=== PATIENT | male | born 1950 | race Caucasian/White ===

== ENCOUNTER 2021-03-13 05:04 | Observation (INO) ==
--- NOTE | 2021-02-28 10:15 | PAT Medication Instructions ---
Medication Instructions Date of Service February 28, 2021 Home Medications acetaminophen [Tylenol Extra Strength] 1,000 mg PO Q6H PRN cholecalciferol (vitamin D3) [Vitamin D3] 250 mcg PO QAM famotidine [Pepcid] 20 mg PO DAILY PRN meloxicam 15 mg PO QAM tramadol 50 mg PO BID PRN ASK your surgeon for instructions meloxicam 15 mg PO QAM DO NOT take the morning of surgery cholecalciferol (vitamin D3) [Vitamin D3] 250 mcg PO QAM Take morning of surgery With a small sip of water, OTHERWISE NOTHING TO EAT OR DRINK AFTER MIDNIGHT: acetaminophen [Tylenol Extra Strength] 1,000 mg PO Q6H PRN (if needed, may be taken up to four hours before surgery) famotidine [Pepcid] 20 mg PO DAILY PRN (if needed) tramadol 50 mg PO BID PRN (if needed, may be taken up to four hours before surgery) Other Notes If you have any questions please call us at [phone] or [phone] or [phone] or [phone]
--- NOTE | 2021-03-02 14:18 | Anesthesiology Consultation ---
Date of Service March 02, 2021 Assessment & Plan (1) Encounter for pre-operative examination: COVID Status: As of 03/02 assessment, patient denies travel to endemic area, known exposure/sick contacts, or symptoms of COVID19. He admitted to PAT RN he does not often wear a mask or wash his hands. Patient advised to adhere to social distancing guidelines, wear a mask in public and avoid large crowds or unnecessary travel in the 2 weeks leading up to surgery. Preoperative COVID19 te sting to be completed prior to surgery per surgeon's arrangements (patient reports being done in [place] at his PCP clearance appt on 03/08. Patient encouraged to be extra cautious/conscientious with COVID precautions between COVID testing and surgery. Patient is NOT vaccinated. Pt had covid in January. Tested + at an urgent care in [facility]. Patient will attempt to obtain records. Made aware that there is a chance he may test positive on his pre-op test, and we need proof of his previous + test in order to proceed. Chart Review Chart Review: Acceptable Risk for Surgery and Patient seen in Pre Admission Testing Teaching & Discussion Instructed NPO after midnight before surgery, except medications with 15 cc of water. Medication instructions provided according to the PAT guidelines. History Surgery Operation Date: 03/13/21 09:15 Proposed Procedures p Right Total Hip Arthroplasty Anterior - Bari Gatica DO Height/Weight Height: 5 ft 6 in Weight: 96.8 kg Allergies Allergy/AdvReac Type Severity Reaction Status Date / Time No Known Allergies Allergy Verified 02/23/21 11:48 Medications Home Medications Medication Instructions Recorded Confirmed Last Taken acetaminophen [Tylenol Extra 1,000 mg PO Q6H PRN 02/23/21 02/23/21 Unknown Strength] cholecalciferol (vitamin D3) 250 mcg PO QAM 02/23/21 02/23/21 Unknown [Vitamin D3] famotidine [Pepcid] 20 mg PO DAILY PRN 02/23/21 02/23/21 Unknown meloxicam 15 mg PO QAM 02/23/21 02/23/21 Unknown tramadol 50 mg PO BID PRN 02/23/21 02/23/21 Unknown Past Medical History Medical History (Updated 03/02/21 @ 14:23 by Agustin Miller) Arthritis Cancer 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 Sleep apnea DOES NOT USE DEVICE Exercise / Class Metabolic Activity II 4-5 Yardwork/Stairs/Walk up hill Past Family History Family History Father Family history of diabetes mellitus Past Surgical History Surgical History (Updated 03/02/21 @ 14:14 by Agustin Miller) History of appendectomy History of back surgery X 2-LOWER BACK. Hardware present. Nausea and vomiting after administration of anesthetic agent Past Anesthesia History No Hx of Anesthesia Complications (other than PONV) and No Family Hx of Anesthesia Complications History of PONV No Hx of Motion Sickness (except on the ocean) and History of PONV Social History Smoking Status: Never smoker Do You Dip or Chew Tobacco: No Hx Alcohol Use: No Hx Substance Use: No Review of Systems Pt denies any recent chest pain, shortness of breath, palpitations, fever, URI, or uncontrolled acid reflux. +mild residual cough, dry, ever since covid infection in January, also sinus drainage Physical Exam Vital Signs BP: 134/90 P: 71bpm SPO2: 97% RA T: 98.0 F R: 16 ENMT Mouth: + macroglossia; no dental restorations, no chipped teeth and no loose teeth Thyromental Distance: > or= 3.5 Finger Breadths Mallampati Class: II Neck neck extension not limited Respiratory normal respiratory effort, lungs clear to auscultation + prolonged expiratory phase Auscultation: + bronchovesicular breath sounds Cardiovascular RRR, no murmur, no edema Lab Results Anesthesia Preop Results Results Anesthesia Widget: WBC 5.88 K/uL (4.8-10.8) 03/02/21 Hgb 14.1 g/dL (14.0-18.0) 03/02/21 Hct 41.6 % (42-52) L 03/02/21 Plt 223 K/uL (130-400) 03/02/21 Na 138 mmol/L (136-145) 03/02/21 K 4.8 mmol/L (3.5-5.1) 03/02/21 Cl 108 mmol/L (98-107) H 03/02/21 CO2 26 mmol/L (21-32) 03/02/21 BUN 20 mg/dl (7-18) H 03/02/21 Creat 0.85 mg/dl (0.6-1.4) 03/02/21 Glucose Level 93 mg/dl (70-99) 03/02/21 PT 10.7 Seconds (9.0-12.0) 03/02/21 PTT 28.5 Seconds (21.0-31.0) 03/02/21 INR 1.1 (0.9-1.1) 03/02/21 HA1c 5.9 % (4.5-5.6) H 03/02/21 Urine Color Dark Yellow 03/02/21 Urine Appearance Clear (Clear) 03/02/21 Urine pH 5.5 (4.5-7.5) 03/02/21 Urine Specific [place] 1.027 (1.000-1.030) 03/02/21 Urine Protein Negative (Negative) 03/02/21 Urine Glucose (UA) Negative (Negative) 03/02/21 Urine Ketones Trace (Negative) H 03/02/21 Urine Blood Negative (Negative) 03/02/21 Urine Nitrite Negative (Negative) 03/02/21 Urine Bilirubin Negative (Negative) 03/02/21 Urine Urobilinogen Negative (Negative) 03/02/21 Urine Leukocyte Esterase Negative (Negative) 03/02/21 Blood Type O Positive 03/02/21 Antibody Screen NEGATIVE 03/02/21
--- NOTE | 2021-03-12 08:05 | History & Physical Report ---
Date of Service March 13, 2021 Assessment & Plan (1) Degenerative joint disease of right hip: I have indicated the patient for right anterior total hip replacement. The risks, benefits and complications of surgery were explained to the patient which include but not limited to infection, acute blood loss, DVT/PE, injury to nerves, vessels, bone, soft tissue, arthrofibrosis, chronic pain, failure of the prosthesis, hip dislocation, leg length discrepancy, need for additional surgery, cardiac and pulmonary events and . The patient wished to proceed with surgery and informed consent was obtained at this time. We will plan for 81mg ASA BID post-operatively for DVT prophylaxis. Upon discharge the patient will be discharged home with home health services. Appropriate clearances by PCP were obtained. History of Present Illness Chief Complaint: Right hip pain/DJD Primary Care Provider: Baldo Hook The patient is a 70 year old male who presents with complaints of severe right hip pain and DJD. The patient has failed outpatient conservative treatments to this point which included NSAIDs, IA corticosteroid injection, home exercise/walking program. The patient's pain and limited function have progressed to the point where they severely hinder their activities of daily living and they no longer tolerate exercise programs. They are requesting to proceed with total hip replacement surgery. 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 Sleep apnea DOES NOT USE DEVICE Surgical History History of appendectomy History of back surgery X 2-LOWER BACK. Hardware present. 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 Constitutional: WD/WN, vitals as above Eyes: PERRL, conjunctivae normal, anicteric sclerae ENMT: external ear and nose normal, oropharynx normal Neck: trachea midline, no thyromegaly Respiratory: normal respiratory effort, lungs clear to auscultation Cardiovascular: RRR, no murmur, no edema Gastrointestinal (Abdomen): normal bowel sounds, soft, nontender, no hepatosplenomegaly Musculoskeletal: no cyanosis or clubbing, extremities motor strength 5/5 Skin: no rashes, warm and dry Neurologic: patellar DTR's 2+ bilat, sensation intact Psychiatric: A+Ox3, euthymic affect Lymphatic: no cervical or axillary lymphadenopathy Results & Data Results & Data ([facility]) Diagnostic Findings Multiple views of the hip demonstrates severe DJD with complete loss of the joint space. +osteophytes, +sclerosis, +subchondral cysts.
[2021-03-13] MEDS ORDERED: FAMOTIDINE 20 MG TAB PO SCH (06:00)
[2021-03-13] MEDS ORDERED: TRANEXAMIC ACID 1,000 MG **IV Pre-op IV SCH (06:00)
[2021-03-13] MEDS ORDERED: LR 500ML BOLUS, THEN 15ML/HR IV SCH (06:00)
[2021-03-13] MEDS ORDERED: ACETAMINOPHEN 500 MG TAB PO SCH (06:00)
[2021-03-13] MEDS ORDERED: METOCLOPRAMIDE HCL 10 MG TABLET PO SCH (06:00)
[2021-03-13] MEDS ORDERED: dexAMETHasone 4 MG TAB PO SCH (06:00)
[2021-03-13] MEDS ORDERED: ceFAZolin 2000MG 2,000 MG/15 ML SYR IV SCH (06:00)
[2021-03-13] MEDS ORDERED: TRANEXAMIC ACID 1,000 MG **IV Intra-op IV SCH (06:00)
[2021-03-13] MEDS ORDERED: BUPIVACAINE 0.5 % 5 MG/1 ML PF 10ML VIAL ONE (06:27)
--- NOTE | 2021-03-13 06:49 | History & Physical Bridge Note ---
Date of Service March 13, 2021 History & Physical Bridge Note I have examined the patient, reviewed the History & Physical and in the interval since the performance of the History & Physical I have noted the following changes of clinical significance: no changes noted
[2021-03-13] MEDS ORDERED: ORTHO JOINT ANESTHETIC ONE (06:55)
[2021-03-13] MEDS ORDERED: MIDAZOLAM HCL 1 MG/ML 2ML VIAL ONE (06:58)
[2021-03-13] MEDS ORDERED: fentaNYL citrate 100 MCG/2 ML VIAL ONE (06:58)
[2021-03-13] MEDS ORDERED: ATROPINE SULFATE 0.1 MG/ML 10ML SYR IV PRN (07:28)
[2021-03-13] MEDS ORDERED: PROMETHAZINE HCL 12.5 MG in SODIUM CHLORIDE 0.9% 50 ML IV PRN (07:28)
[2021-03-13] MEDS ORDERED: fentaNYL citrate 100 MCG/2 ML VIAL IV PRN (07:28)
[2021-03-13] MEDS ORDERED: ONDANSETRON INJ 2 MG/ML 2 ML VIAL IV PRN ×2 (07:28→10:48)
[2021-03-13] MEDS ORDERED: HYDROmorphone INJ 1 MG/ML SYRINGE IV PRN (07:28)
[2021-03-13] MEDS ORDERED: FLUMAZENIL 0.1 MG/1 ML 10 ML VIAL IV PRN (07:28)
[2021-03-13] MEDS ORDERED: ePHEDrine sulfate 50 MG/ML AMP IV PRN (07:28)
[2021-03-13] MEDS ORDERED: NALOXONE HCL 0.4 MG/1 ML VIAL/CARP IV PRN ×2 (07:28→10:48)
[2021-03-13] MEDS ORDERED: LIDOCAINE 2% 2 ML VIAL/AMP(20MG/ML) INFIL ONE (07:53)
[2021-03-13] MEDS ORDERED: PROPOFOL IV EMULSION 10 MG/ML 20 ML VIAL IV ONE (07:53)
[2021-03-13] MEDS ORDERED: ONDANSETRON INJ 2 MG/ML 2 ML VIAL ONE (07:53)
[2021-03-13] MEDS ORDERED: ROPIVACAINE 0.5% HCL/PF 150 MG, BUPIVACAINE 0.75% MPF 20 ML, EPINEPHrine 30MG/30ML (OR ... INSTIL SCH (08:00)
--- NOTE | 2021-03-13 08:56 | Post Operative Brief Note ---
Immediate Post Op Note v1 Date of Surgery March 13, 2021 Pre & Post Diagnosis Operation Date: 03/13/21 07:15 Pre-Op Diagnosis: Unilateral Primary Osteoarthritis Hip Right Post-Op Diagnosis: Unilateral Primary Osteoarthritis Hip Right I identified the patient and participated in the time-out.: Yes Procedure Operation Date: 03/13/21 07:15 Actual Procedures p Right Anterior Total Hip Arthroplasty(Right) - Bari Gatica DO Surgeon Bari Gatica DO Triage Nurse Dru Pemberton Estimated Blood Loss 185 Findings Consistent with Post-Op Diagnosis Fluids See anesthesia report Specimens Femoral head Anesthesia Type Spinal MAC Complications none Disposition Disposition: Recovery Room Overlapping Procedure I was present for: the critical portions of procedure. I was immediately available: during the entire case. Back up surgeon: was not required during procedure.
--- NOTE | 2021-03-13 08:59 | Operative Report ---
Post Operative Report Pre & Post Diagnosis Operation Date: 03/13/21 07:15 Pre-Op Diagnosis: Unilateral Primary Osteoarthritis Hip Right Post-Op Diagnosis: Unilateral Primary Osteoarthritis Hip Right I identified the patient and participated in the time-out.: Yes Procedure Operation Date: 03/13/21 07:15 Actual Procedures p Right Anterior Total Hip Arthroplasty(Right) - Bari Gatica DO Surgeon Bari Gatica DO Fermentation Manager Dru Pemberton Estimated Blood Loss 185 Findings Consistent with Post-Op Diagnosis Fluids See anesthesia report Specimens Femoral head Anesthesia Type Spinal MAC Complications none Disposition Disposition: Recovery Room Indications The patient is a 70-year-old male who presents with severe progressive right hip DJD who has failed outpatient conservative treatments. I indicated the patient for a total hip replacement and the risks and benefits were explained in detail which included but not limited to infection, bleeding, blood clot, damage to s urrounding bone, nerves, vessels, soft tissue, hip dislocation, failure of the prosthesis, leg length discrepancy, need for additional surgery and . The patient agreed to proceed with replacement of the hip and informed consent was obtained. Appropriate clearances were obtained. Description of Procedure COMPONENTS USED: Lucero & NephUIBLUEPRINTology hip system: Acetabulum size 52, femur size 8 standard offset, femoral head 36-3, liner 52x30, acetabular screw 25 mm times. DESCRIPTION OF PROCEDURE: Following satisfactory spinal anesthesia, the patient was placed supine on the OR table. The left leg was placed in the well leg guthrie and the right leg in the traction device. The right leg was prepared with ChloraPrep and draped sterilely. A surgical timeout was performed, patient identified and site [place] verified. Appropriate antibiotics were given. A standard anterior approach in the interval between the sartorius and tensor muscles was performed. Dissection was carried down through subcutaneous tissues. Electrocautery was utilized for hemostasis. Circumflex femoral vessels were identified, tied and ligated. The anterior capsular fat pad was removed and the capsulotomy was performed revealing the arthritic femoral neck and head. A femoral neck cut was made with reciprocating saw and the bone fragments removed. The acetabular self-retraining retractor was placed. Acetabular reaming was completed under fluoroscopic guidance, a 52 shell was impacted into an anatomic position and secured with a acetabular screw. Local anesthetic was placed and following irrigation, the polyethylene liner was placed. The femur was placed into position of external rotation, extension and adduction. Femoral canal was prepared up to the size 8 standard offset. Trial reduction with a 36-3 neck length head showed good soft tissue tension, leg lengths restored, and good fit and fill of the proximal canal using fluoroscopic landmarks. The hip was dislocated. The trial component was removed. The final implant was placed. The hip was irrigated with sterile saline solution and reduced. A Betadine soak was performed. After 3 minutes, the hip was once more irrigated with copious sterile saline solution with bacitracin. Rosalind-incisional soft tissue was injected utilizing [place] Orthomix which includes a combination of Ropivicaine 0.5% 150mg, Bupivicaine 0.5%/Epinephrine 1:200,000 30ml, Toradol 30mg, Dexamethasone 4mg, Ketamine 10mg, Clonidine 100mcg and NSS 30ml solution. The capsule was then closed with 1-0 Vicryl interrupted figure of eight sutures. The fascia was closed with a running suture of #1 Vicryl, the subcutaneous tissues with 2-0 Vicryl and the skin was closed with criss. A sterile dry dressing was applied which included elsa incisional VAC. The patient tolerated the procedure well and was transported to PACU in stable condition. Due to the complex nature of the procedure, the entire surgery was performed with the operational assistance of Dru Pemberton PA-C. The health center assistant, under direct supervision, was involved in the actual performance of all aspects of the surgical procedure including patient positioning, hemostasis, tissue retraction, instrument management and wound closure. I attest to the content of the Intraoperative Record and any orders documented therein. Any exceptions are noted below.
--- NOTE | 2021-03-13 09:30 | Orthopedic Progress Note ---
Date of Service March 13, 2021 Assessment & Plan (1) Degenerative joint disease of right hip: s/p right anterior total hip arthroplasty -Ancef x24 -DVT prophylaxis: SCDs, teds, 81 mg ASA twice daily -Weight-bear as tolerates right lower extremity -PT/OT -Postoperative x-ray demonstrates a well aligned well fixed prosthesis without fracture or dislocation. -A.m. labs -DC planning Subjective Post Operative Progress Note Patient seen in PACU, comfortable, denies complaints, pain well controlled, no acute issues. Review of Systems Review of Systems: All systems reviewed & are unremarkable except as noted in HPI & below Constitutional: as per Subjective / HPI Physical Exam Physical Exam: Right lower extremity physical exam limited secondary to spinal anesthesia, +2 dorsalis pedis pulse, compartment soft nontender, dressing clean dry and intact. Constitutional: WD/WN, vitals as above Results & Data ([place]) Vital Signs (Past 12 Hours) Vital Signs Temp Pulse Pulse Resp BP BP Pulse Ox 03/13/21 09:20 72 16 108/79 94 03/13/21 09:11 36.2 C L 77 15 128/75 95 03/13/21 05:50 37.1 C 100 H 18 137/99 96
--- NOTE | 2021-03-13 09:38 | Fluoroscopy Report ---
FL hip RT 1V CLINICAL HISTORY: RT TOTAL ANTERIOR HIP COMPARISON STUDY: None. FLUOROSCOPY TIME: 28 seconds. FINDINGS: 2 fluoroscopic spot images of the right hip demonstrate a right total hip arthroplasty. The hardware is intact. No fracture or dislocation. IMPRESSION: Fluoroscopy provided for right total hip arthroplasty. ACT 112: Negative or not required by law. Electronically signed by: Marcio Coley M.D. 03/13/2021 9:36 AM
--- NOTE | 2021-03-13 10:09 | XRay Report ---
AP PELVIS, CROSSTABLE LATERAL RIGHT HIP History: Right total hip arthroplasty. Degenerative arthritis. Postop. FINDINGS: The patient is status post a right total hip arthroplasty. The hardware is intact. No fract ure or dislocation. Skin criss are in place. IMPRESSION: Right total hip arthroplasty. No evidence for hardware complication ACT 112: Negative or not required by law. Electronically signed by: Marcio Coley M.D. 03/13/2021 10:07 AM
--- NOTE | 2021-03-13 10:29 | Anesthesiology Progress Note ---
Date of Service March 13, 2021 Anesthesia Post Procedure Vital Signs Vital Signs: Temp Pulse Pulse Resp BP BP Pulse Ox 03/13/21 10:20 66 17 114/76 94 03/13/21 10:10 36.4 C L 72 20 106/75 94 03/13/21 10:00 70 16 109/76 92 03/13/21 09:50 66 15 104/76 93 03/13/21 09:40 68 17 95/71 L 94 03/13/21 09:30 68 16 113/66 94 03/13/21 09:20 72 16 108/79 94 03/13/21 09:11 36.2 C L 77 15 128/75 95 03/13/21 05:50 37.1 C 100 H 18 137/99 96 Pain Intensity Right Hip: Pain Intensity: 2 Transfer of Care Handoff Completed per policy Notes Mental Status: alert / awake / arousable Patient Amnestic to Procedure: Yes Nausea / Vomiting: adequately controlled Pain: adequately controlled Airway Patency, RR, SpO2: stable & adequate BP & HR: stable & adequate Hydration State: stable & adequate Neuraxial Anesthesia: was administered and sensory block is resolving Anesthetic Complications: no major complications apparent
[2021-03-13] MEDS ORDERED: METOCLOPRAMIDE HCL INJ 5 MG/ML 2 ML VIAL IV PRN (10:48)
[2021-03-13] MEDS ORDERED: diphenhydrAMINE Capsule 25 MG CAP PO PRN (10:48)
[2021-03-13] MEDS ORDERED: FAMOTIDINE 20 MG TAB PO PRN (10:48)
[2021-03-13] MEDS ORDERED: bisacodyL 10 MG SUPP PR PRN (10:48)
[2021-03-13] MEDS ORDERED: MAGNESIUM HYDROXIDE SUSP 30 ML UDC PO PRN (10:48)
[2021-03-13] MEDS ORDERED: HYDROmorphone INJ 0.5 MG/0.5 ML SYR IV PRN (10:48)
[2021-03-13] MEDS: SODIUM CHLORIDE 0.9% 1000ML 1,000 ML IV SCH ×2 (11:04→21:18)
[2021-03-13] MEDS: DOCUSATE SODIUM 100 MG CAP PO SCH ×2 (13:01→21:04)
[2021-03-13] MEDS: KETOROLAC TROMETHAMINE 15 MG/ML VIAL IV SCH ×3 (13:01→23:06)
[2021-03-13] MEDS: ACETAMINOPHEN 500 MG TAB PO SCH ×2 (14:44→21:03)
[2021-03-13] MEDS: MULTIVITAMIN TAB PO SCH (14:44)
[2021-03-13] MEDS: ceFAZolin 2000MG 2,000 MG/15 ML SYR IV SCH ×2 (16:16→23:06)
[2021-03-13] MEDS ORDERED: SENNA 8.6 MG TAB PO SCH (21:00)
[2021-03-13] MEDS: oxyCODONE HCL IR 5 MG TAB (IMMEDIATE RELEASE) PO PRN (21:03)
[2021-03-14] MEDS: ACETAMINOPHEN 500 MG TAB PO SCH ×2 (06:00→13:43)
[2021-03-14] MEDS: KETOROLAC TROMETHAMINE 15 MG/ML VIAL IV SCH (06:01)
[2021-03-14 08:23] LABS: Basophils # (auto) 0.01 K/uL (0-0.2); Basophils % (auto) 0.1 %; Hematocrit (blood only) 37.8 % (42-52); Immature Granulocytes # (auto) 0.05 K/uL (0.00-0.02); Immature Granulocytes % (auto) 0.3 %; Lymphocytes # (auto) 1.72 K/uL (1.2-3.4); Lymphocytes % (auto) 11.3 %; Mean Corpuscular Hemoglobin 30.2 pg (25-34); Mean Corpuscular Hgb Conc 34.4 g/dL (32-36); Mean Corpuscular Volume 87.7 fL (80-100); Mean Platelet Volume 10.7 fL (7.4-10.4); Monocytes # (auto) 2.02 K/uL (0.11-0.59); Monocytes % (auto) 13.2 %; Neutrophils # (auto) 11.48 K/uL (1.4-6.5); Neutrophils % (auto) 75.1 %; Platelet Count 297 K/uL (130-400); RDW Coefficient of Variation 13.2 % (11.5-14.5); RDW Standard Deviation 43.1 fL (36.4-46.3); Red Blood Count 4.31 M/uL (4.7-6.1); White Blood Count 15.28 K/uL (4.8-10.8)
[2021-03-14] MEDS: DOCUSATE SODIUM 100 MG CAP PO SCH (08:30)
[2021-03-14] MEDS: MULTIVITAMIN TAB PO SCH (08:30)
[2021-03-14] MEDS: oxyCODONE HCL IR 5 MG TAB (IMMEDIATE RELEASE) PO PRN ×2 (08:33→13:44)
[2021-03-14 08:35] LABS: BUN Creatinine Ratio 22.5 (10-20); Calcium 9.4 mg/dl (8.5-10.1); Creatinine Clr Calc Pharmacy 76.9 ml/min; Est GFR (African American) 91.3 ml/min; Est GFR (Non-African American) 78.8 ml/min; Potassium 3.8 mmol/L (3.5-5.1)
[2021-03-14] MEDS ORDERED: ASPIRIN 81 MG ECTAB PO SCH (09:00)
--- NOTE | 2021-03-14 09:29 | Orthopedic Progress Note ---
Date of Service March 14, 2021 Assessment & Plan (1) Degenerative joint disease of right hip: s/p right anterior total hip arthroplasty POD#1 -Ancef x24 -DVT prophylaxis: SCDs, teds, 81 mg ASA twice daily -Weight-bear as tolerates right lower extremity -PT/OT -Postoperative x-ray demonstrates a well aligned well fixed prosthesis without fracture or dislocation. -A.m. labs - as above, hgb 13.0 -DC planning - home with Admission and Anticipated Discharge Date Admission Date: March 13, 2021 Subjective Post Operative Progress Note Patient seen sitting up in bed, comfortable, denies complaints, pain well controlled, no acute issues. Denies F/C/N/V/SOB/CP. Review of Systems Review of Systems: All systems reviewed & are unremarkable except as noted in HPI & below Constitutional: as per Subjective / HPI Physical Exam Physical Exam: RLE NVSI +EHL/FHL/TA/GS SILT grossly, +2 DP pulse, compartments soft NT, dressing cdi. Constitutional: WD/WN, vitals as above Results & Data ([facility]) Vital Signs (Past 12 Hours) Vital Signs Temp Pulse Pulse Resp BP Pulse Ox 03/14/21 06:59 36.5 C 84 18 136/87 95 03/14/21 03:19 36.7 C 71 16 146/83 H 94 03/13/21 22:56 36.7 C 73 16 120/76 94 Laboratory Results 03/14/21 03/14/21 Range/Units 07:34 07:34 WBC 15.28 H (4.8-10.8) K/uL RBC 4.31 L (4.7-6.1) M/uL Hgb 13.0 L (14.0-18.0) g/dL Hct 37.8 L (42-52) % MCV 87.7 (80-100) fL MCH 30.2 (25-34) pg MCHC 34.4 (32-36) g/dL RDW Std Deviation 43.1 (36.4-46.3) fL RDW Coeff of David 13.2 (11.5-14.5) % Plt Count 297 (130-400) K/uL MPV 10.7 H (7.4-10.4) fL Immature Gran % (Auto) 0.3 % Neut % (Auto) 75.1 % Lymph % (Auto) 11.3 % [place] % (Auto) 13.2 % Eos % (Auto) 0.0 % Baso % (Auto) 0.1 % Neut # (Auto) 11.48 H (1.4-6.5) K/uL Lymph # (Auto) 1.72 (1.2-3.4) K/uL [place] # (Auto) 2.02 H (0.11-0.59) K/uL Eos # (Auto) 0.00 (0-0.5) K/uL Baso # (Auto) 0.01 (0-0.2) K/uL Immature Gran # (Auto) 0.05 H (0.00-0.02) K/uL Sodium 137 (136-145) mmol/L Potassium 3.8 (3.5-5.1) mmol/L Chloride 104 (98-107) mmol/L Carbon Dioxide 23 (21-32) mmol/L Anion Gap 10.0 (3-11) BUN 22 H (7-18) mg/dl Creatinine 0.97 (0.6-1.4) mg/dl Est Cr Clr Drug Dosing 76.9 ml/min Est GFR ( Amer) 91.3 ml/min Est GFR (Non-Af Amer) 78.8 ml/min BUN/Creatinine Ratio 22.5 H (10-20) Glucose 108 H (70-99) mg/dl Calcium 9.4 (8.5-10.1) mg/dl
[2021-03-14] MEDS ORDERED: CeleBREX 200 MG CAP PO SCH (12:00)
--- NOTE | 2021-03-14 21:30 | Discharge Summary ---
Date of Service March 14, 2021 Admission HPI Per Admitting Provider The patient is a 70 year old male who presents with complaints of severe right hip pain and DJD. The patient has failed outpatient conservative treatments to this point which included NSAIDs, IA corticosteroid injection, home exercise/walking program. The patient's pain and limited function have progressed to the point where they severely hinder their activities of daily living and they no longer tolerate exercise programs. They are requesting to proceed with total hip replacement surgery. Principal Diagnosis Right anterior total hip replacement Discharge Exam RLE NVSI +EHL/FHL/TA/GS SILT grossly, +2 DP pulse, compartments soft NT, dressing cdi. Constitutional WD/WN, vitals as above Discharge Data Allergies Allergy/AdvReac Type Severity Reaction Status Date / Time No Known Allergies Allergy Verified 02/23/21 11:48 Procedures Performed Operation Date: 03/13/21 07:15 Actual Procedures p Right Anterior Total Hip Arthroplasty(Right) - Bari Gatica DO Ordered Studies 03/13/21 07:15 FL hip RT 1V Routine Hospital Course (1) Degenerative joint disease of right hip: The patient is a 70 -year-old male who presents with long standing history of severe right hip DJD and failed outpatient conservative treatments. The patient's symptoms have progressed to the point where it has been difficult to perform even normal activities of daily living. I indicated the patient for a right anterior total hip arthroplasty, the risks, benefits and complications of the procedure include but not limited to infection, bleeding, damage to bone, nerves, vessels, surrounding soft tissue, may develop blood clots, loss of function, leg length discrepancy, dislocation, failure of the components, loosening of the components, the need for additional surgery and . The patient wished to proceed with surgery at this time and informed consent was obtained. Hospital Course: On 03/13/21 the patient was taken to the operating room, adequate anesthesia administered and underwent a right anterior total hip arthroplasty. The patient tolerated the procedure well and was taken to the PACU in stable condition. Post-operatively the patient was started on a DVT ppx medication and given appropriate IV antibiotics. Consults were placed to physical therapy, occupational therapy and case management. On POD#1, the patient did well overnight and their pain was well controlled. Labs were drawn and the Hgb was 13.0. The patient progressed well with PT. Dressings were changed at this time and the incision was clean, dry and intact. The patients hospital stay was relatively uneventful and they were deemed stable by the orthopedic team and consultants to be discharged home with HH on 03/14/21. Discharge Instructions: Upon discharge the patient may weight bear as tolerates through their operative extremity. They were instructed to keep the incision clean and dry at all times. The patient may shower but should not submerge the incision, avoid bathing, pools and hot tubs. The patient was given a script for pain medication and should take as instructed. The patient was given a script for DVT ppx 81mg ASA BID and should take as directed. The patient was instructed to not drive or travel for long distances until cleared to do so. If the patient develops any symptoms of fevers, chills, nausea, vomiting, increased redness, swelling, pain or drainage from the surgical site, they should notify the office and/or proceed to the nearest emergency room. The patient should follow up in 10-14 days after surgery for their routine post-operative follow-up appointment and should call the office, to confirm the date and time. s/p right anterior total hip arthroplasty POD#1 -Ancef x24 -DVT prophylaxis: SCDs, teds, 81 mg ASA twice daily -Weight-bear as tolerates right lower extremity -PT/OT -Postoperative x-ray demonstrates a well aligned well fixed prosthesis without fracture or dislocation. -A.m. labs - as above, hgb 13.0 -DC planning - home with Total Time Total Time Spent Total Time Spent (In Minutes): 30 Discharge Plan Discharge Items Patient Disposition: Home - Home Health Services Reason For Visit: Unilateral Primary Osteoarthritis Hip Right Discharge Diagnosis: Right anterior total hip replacement Condition on Discharge: Good Activity: Per Instructions section Lifting: Wait until after follow-up appointment Bathing: Keep incision dry Bathing Comment: No bathing, pools or hot tubs. Sexual Activity: Wait until after follow-up appointment Exercise/Sports: Wait until after follow-up appointment Driving/Machine Use: No driving. Weightbearing: Full weightbearing Non-emergency contact: Primary Care Provider and Surgeon Call non-emergency contact if: you have any medication questions, your symptoms worsen, your pain is not controlled, your pain is worsening, your pain is unusual for you, your pain is concerning for you, you have a fever, your temperature is above 101, your wound has increased redness, your wound has increased drainage and your wound pain has increased Follow-up/Referrals: Baldo Hook D.O. [Primary Care Provider] - Diet: Regular Addtl Attending Provider Instructions: ACTIVITY RECOMMENDATIONS: SELF CARE INSTRUCTIONS AFTER TOTAL HIP REPLACEMENT : Direct Anterior Approach Until the incision and soft tissues around your hip have healed, there is a possibility that the hip prosthesis could dislocate. A. Hip flexion ( Up & Down out of chair or steps ) may be difficult. This is normal. B. Numbness in front of the thigh is also normal for a few weeks. C. Use hand rails when walking on stairs. D. Wear low heeled shoes with non-slip soles. E. Be sure that your floors are free of things that could trip you - throw rugs, electrical cords, small objects. Avoid wet and waxed floors, especially with crutches and canes. F. Try to walk several times a day with rest periods between. G. Continue with all the exercises taught to you in the hospital. Again, make walking a part of your daily routine. SPECIAL CARE INSTRUCTIONS: VERY IMPORTANT TO READ AND REVIEW A. You may still be at risk for phlebitis and blood clots. 1. Wear surgical stockings (CORY hose) for 2 weeks after surgery to improve circulation and reduce swelling. 2. Take Aspirin 81mg twice daily for 4 weeks or as directed by your doctor. This is your blood thinner. 3. High risk patients may be prescribed a stronger blood thinner if necessary. 4. If you are on Coumadin normally, your family doctor/senior architectural designer should monitor your blood work. Expect a phone call the day of or the day after bloodwork is drawn to adjust your dosage. B. You must take antibiotics before having dental work, bladder, bowel and other surgery. Your doctor will provide you with a permanent card to carry describing precautions. C. Call [facility] if you have a fever, redness or swelling around the incision, cloudy drainage from incision, or sudden increase in pain in your hip, not relieved by your regular pain medication. D. Please call the office at if you have any concerns or questions about your operation or recovery. * YOU MAY SHOWER, NO TUB BATHS UNTIL CLEARED BY YOUR DOCTOR. - Keep an extra close eye on the top portion of your incision. Be sure to keep clean & dry. * WEAR CORY HOSE 20 HOURS PER DAY FOR 2 WEEKS. * YOU MAY PROGRESS FROM A WALKER, TO A CANE, TO INDEPENDENT AT YOUR OWN PACE. * MOST PATIENTS WILL HAVE HOME NURSING FOR THERAPY. IF YOU DECIDE TO DO OUTPATIENT PHYSICAL THERAPY, PLEASE SCHEDULE THIS 3 TIMES PER WEEK. *JORDAN incisional vac is a special dressing covering your incision. This dressing provides a sterile dry environment while you are healing. The dressing is to be left in place for 7 days post-operatively. Your home nurse or surgeon will remove. If you develop any redness or blisters or have any questions notify your surgeon immediately. FOLLOW UP VISIT: If appointment is not already scheduled: Please call [facility] to make a follow-up appointment for 2 weeks after your surgery at . Pending Studies at Discharge: No Stand-Alone Forms: [facility], Opioid Pain Management, Smoking Cessation Medications and DC Order Prescriptions: New celecoxib [Celebrex] 200 mg Capsule 200 mg PO BID PRN (Reason: pain) Qty: 30 RF: 0 aspirin 81 mg Tablet,Delayed Release (Dr/Ec) 81 mg PO BID Qty: 56 RF: 0 acetaminophen 500 mg Tablet 1,000 mg PO Q8 PRN (Reason: pain/fevers) Qty: 90 RF: 0 oxycodone 5 mg Tablet 5 mg PO Q6H MDD 4 PRN (Reason: pain) Qty: 30 RF: 0 sennosides [Senokot] 8.6 mg Tablet 17.2 mg PO HS PRN (Reason: constipation) Qty: 30 RF: 0 Continued cholecalciferol (vitamin D3) [Vitamin D3] 125 mcg (5,000 unit) Tablet 250 mcg PO QAM RF: 0 famotidine [Pepcid] 20 mg Tablet 20 mg PO DAILY PRN (Reason: Acid Reflux) RF: 0 Discontinued meloxicam 15 mg Tablet 15 mg PO QAM RF: 0 tramadol 50 mg Tablet 50 mg PO BID PRN (Reason: Pain) RF: 0 acetaminophen [Tylenol Extra Strength] 500 mg Capsule 1,000 mg PO Q6H PRN (Reason: Pain) RF: 0 Discharge Orders: Discharge Order (Routine); Ordered 06/08/21 Ordered By: Bari Hoffman/Other Patient Handouts: DVT Post Op Prevention Admission Data Admit Date/Time: 03/13/21 09:16 Attending Provider: Bari Gatica Admit Provider: Bari Gatica Primary Care Provider: Baldo Hook Other Providers: [facility],Home [facility] Other Interventions: Discharge Summary Assessment (RN) Last Done: 03/14/21 11:39
== END 2021-03-14 15:05 | disposition home health service (06) ==
LOC: ASU 05:04 → 3E 05:04